=== PATIENT | female | born 1960 | race Caucasian/White ===

== ENCOUNTER 2018-06-18 06:52 | Inpatient (IN) | payer MEDICARE ==
[~2018-06-18] VITALS: Ht 152.4 cm; Wt 84.8 kg
[2018-06-18] MEDS ORDERED: ALBUTEROL (0.083%) 2.5MG/3ML NEB HHN STA (07:40)
[2018-06-18 08:05] LABS: BG BASE EXCESS -2.6 mmol/L (-2.0-2.0); BG CARBOXYHEMOGLOBIN 0.9 % (0.5-1.5); BG DEOXYHEMOGLOBIN 3.7 % (0.0-5.0); BG FRACTION INSPIRED OXYGEN 21; BG HCO3 ACT 22.1 mmol/L (22.0-26.0); BG METHEMOGLOBIN 0.1 % (0.0-1.5); BG OXYGEN SATURATION 96.3 % (92.0-98.5); BG OXYHEMOGLOBIN 95.3 % (94.0-97.0); BG PCO2 37.7 mmHg (35.0-45.0); BG PH 7.386 (7.350-7.450); BG PO2 87.7 mmHg (75.0-100.0); BG SAMPLE SITE RIGHT BRACHIAL; BG TOTAL HEMOGLOBIN 10.2 g/dL (12.0-18.0); BG VENT MODE ROOM AIR
[2018-06-18 08:12] LABS: BASOPHILS % 0.3 % (0.0-2.0); EOSINOPHILS % 0.9 % (0.0-5.0); HEMATOCRIT. 30.6 % (36.0-48.0); HEMOGLOBIN. 9.8 g/dL (12.0-16.0); LYMPHOCYTES % 9.6 % (20.0-50.0); MEAN CORPUSCULAR VOLUME 94.1 fL (81.0-99.0); MEAN PLATELET VOLUME 9.4 fl (7.4-10.4); MONOCYTES % 7.8 % (2.0-8.0); NEUTROPHILS % 81.4 % (40.0-76.0); PLATELET 124 x1000/uL (130-400); RED BLOOD CELL COUNT 3.25 mill/uL (4.2-5.4); RED CELL DISTRIBUTION WIDTH 17.5 % (11.6-14.6)
[2018-06-18 08:18] LABS: CHLORIDE 89 mEq/L (98-107)
[2018-06-18 08:22] LABS: INR 1.1; PARTIAL THROMBOPLASTIN TIME 26.3 sec (23.4-31.0); PROTHROMBIN TIME 11.4 sec (9.1-11.1)
[2018-06-18] MEDS ORDERED: INSULIN REGULAR (HUMULIN R) 300UNITS/3ML IV ONE (08:45)
[2018-06-18] MEDS ORDERED: FUROSEMIDE 40MG/4ML VIAL IVP NR (10:22)
[2018-06-18 10:28] LABS: CLARITY URINE CLOUDY (CLEAR); COLOR URINE YELLOW (YELLOW); KETONES URINE NEGATIVE (NEGATIVE); LEUKOCYTE ESTERASE URINE NEGATIVE (NEGATIVE); NITRITE URINE NEGATIVE (NEGATIVE); OCCULT BLOOD URINE TRACE (NEGATIVE); PROTEIN URINE 4+ (NEGATIVE); SPECIFIC GRAVITY URINE 1.019 (1.005-1.030); UROBILINOGEN URINE 0.2 E.U./dL (0.2-1.0)
[2018-06-18] MEDS ORDERED: SODIUM POLYSTYRENE SULFONATE 15 G/60 ML BOT PO NR (10:45)
[2018-06-18 11:43] VITALS: BP 201/80
[2018-06-18 12:00] VITALS: BP 201/80
[2018-06-18] MEDS ORDERED: HYDR50SY PO (12:22)
[2018-06-18] MEDS ORDERED: CARV25TA47 PO (12:22)
[2018-06-18] MEDS ORDERED: DEXTROSE 50% WATER 50ML SYRINGE IV PRN (12:30)
[2018-06-18] MEDS ORDERED: CLONIDINE 0.2MG TABLET PO PRN (13:00)
[2018-06-18] MEDS ORDERED: LORAZEPAM 0.5MG TABLET PO PRN (13:00)
[2018-06-18] MEDS ORDERED: GUAIFENESIN 200MG/10ML SUGAR FREE UDC PO PRN (13:00)
[2018-06-18] MEDS ORDERED: IPRATROPIUM/ALBUTEROL 0.5-3(2.5)MG/3ML NEB INH PRN (13:00)
[2018-06-18] MEDS ORDERED: NITROGLYCERIN 0.4MG TABLET SL SL PRN (13:00)
[2018-06-18] MEDS ORDERED: ONDANSETRON HCL 4MG/2ML INJ IV PRN (13:00)
[2018-06-18] MEDS: AMLODIPINE 10MG TABLET PO SCH (13:00)
[2018-06-18] MEDS ORDERED: MAGNESIUM/ALUMINUM HYDROXIDE/SIMETHICONE 30ML UDC PO PRN (13:00)
[2018-06-18] MEDS ORDERED: DOCUSATE SODIUM 100MG CAPSULE PO PRN (13:00)
[2018-06-18] MEDS: INSULIN LISPRO 100 UNITS/ML SUBCUT SCH ×4 (13:10→21:54)
[2018-06-18] MEDS: BLOOD SUGAR DIAGNOSTIC STRIP TEST SCH ×3 (13:32→21:01)
[2018-06-18 16:00] VITALS: BP 172/63
[2018-06-18] MEDS: DIPHENHYDRAMINE 50MG/ML VIAL IV PRN (16:00)
[2018-06-18] MEDS: GABAPENTIN 100MG CAPSULE PO SCH ×2 (16:03→21:52)
[2018-06-18] MEDS: HYDRALAZINE HCL 50MG TABLET PO SCH ×2 (16:04→21:51)
[2018-06-18] MEDS: ENOXAPARIN 30MG/0.3ML SYR SUBCUT SCH (16:05)
[2018-06-18] MEDS: ACETAMINOPHEN 325MG TABLET PO PRN ×2 (16:07→23:10)
[2018-06-18 20:00] VITALS: BP 153/75
[2018-06-18] MEDS: LISINOPRIL 20MG TABLET PO SCH (20:59)
[2018-06-18] MEDS ORDERED: ZOLPIDEM TARTRATE 5MG TABLET PO PRN (21:00)
[2018-06-18] MEDS: FAMOTIDINE 20MG TABLET PO SCH (21:00)
[2018-06-18] MEDS: METOPROLOL TARTRATE 25MG TABLET PO SCH (21:00)
[2018-06-18] MEDS: EPOETIN ALFA 4000UNITS/ML VIAL SUBCUT SCH (21:01)
[2018-06-18] MEDS: INSULIN GLARGINE UD 100 UNITS/ML SYR SUBCUT SCH (21:55)
[2018-06-18] MEDS ORDERED: INSULIN GLARGINE UD 100 UNITS/ML SYR SUBCUT SCH (22:00)
[2018-06-19] VITALS: BP 128/53
[2018-06-19 04:00] VITALS: BP 132/85
[2018-06-19] MEDS: BLOOD SUGAR DIAGNOSTIC STRIP TEST SCH ×4 (05:55→21:15)
[2018-06-19] MEDS: GABAPENTIN 100MG CAPSULE PO SCH ×3 (05:55→21:06)
[2018-06-19] MEDS: HYDRALAZINE HCL 50MG TABLET PO SCH ×3 (05:56→21:06)
[2018-06-19 07:21] LABS: BASOPHILS % 0.4 % (0.0-2.0); EOSINOPHILS % 2.1 % (0.0-5.0); HEMATOCRIT. 29.6 % (36.0-48.0); HEMOGLOBIN. 9.6 g/dL (12.0-16.0); LYMPHOCYTES % 13.8 % (20.0-50.0); MEAN CORPUSCULAR HEMOGLOBIN 29.8 pg (28.0-32.0); MEAN CORPUSCULAR VOLUME 91.2 fL (81.0-99.0); MEAN PLATELET VOLUME 8.9 fl (7.4-10.4); MONOCYTES % 8.6 % (2.0-8.0); NEUTROPHILS % 75.1 % (40.0-76.0); PLATELET 135 x1000/uL (130-400); RED BLOOD CELL COUNT 3.24 mill/uL (4.2-5.4); RED CELL DISTRIBUTION WIDTH 16.8 % (11.6-14.6)
[2018-06-19] MEDS: INSULIN LISPRO 100 UNITS/ML SUBCUT SCH ×7 (07:27→21:07)
[2018-06-19 08:00] VITALS: BP 124/63
[2018-06-19 08:59] LABS: PHOSPHORUS 6.2 mg/dL (2.5-4.9)
[2018-06-19] MEDS: AMLODIPINE 10MG TABLET PO SCH (09:00)
[2018-06-19] MEDS: LISINOPRIL 20MG TABLET PO SCH ×2 (09:59→20:37)
[2018-06-19] MEDS: METOPROLOL TARTRATE 25MG TABLET PO SCH ×2 (09:59→20:37)
[2018-06-19] MEDS: FAMOTIDINE 20MG TABLET PO SCH (09:59)
[2018-06-19] MEDS: FOLIC ACID/VITAMIN B COMP W-C TABLET PO SCH (10:00)
[2018-06-19] MEDS: ENOXAPARIN 30MG/0.3ML SYR SUBCUT SCH (10:04)
[2018-06-19 12:00] VITALS: BP 146/73
[2018-06-19 16:00] VITALS: BP 114/50
[2018-06-19] MEDS: ACETAMINOPHEN 325MG TABLET PO PRN (18:57)
[2018-06-19 20:00] VITALS: BP 126/58
[2018-06-19] MEDS: INSULIN GLARGINE UD 100 UNITS/ML SYR SUBCUT SCH (21:07)
[2018-06-20] VITALS: BP 130/62
[2018-06-20] MEDS: GABAPENTIN 100MG CAPSULE PO SCH ×3 (05:31→21:36)
[2018-06-20] MEDS: HYDRALAZINE HCL 50MG TABLET PO SCH ×3 (05:31→21:39)
[2018-06-20] MEDS: DIPHENHYDRAMINE 50MG/ML VIAL IV PRN ×2 (05:38→18:12)
[2018-06-20] MEDS: BLOOD SUGAR DIAGNOSTIC STRIP TEST SCH ×4 (07:40→21:40)
[2018-06-20 08:00] VITALS: BP 126/65
[2018-06-20] MEDS: FOLIC ACID/VITAMIN B COMP W-C TABLET PO SCH (09:14)
[2018-06-20] MEDS: FAMOTIDINE 20MG TABLET PO SCH (09:14)
[2018-06-20] MEDS: INSULIN LISPRO 100 UNITS/ML SUBCUT SCH ×8 (09:15→21:00)
[2018-06-20] MEDS: AMLODIPINE 10MG TABLET PO SCH (09:18)
[2018-06-20] MEDS: METOPROLOL TARTRATE 25MG TABLET PO SCH ×2 (09:18→21:37)
[2018-06-20] MEDS: LISINOPRIL 20MG TABLET PO SCH ×2 (09:18→21:35)
[2018-06-20] MEDS: ENOXAPARIN 30MG/0.3ML SYR SUBCUT SCH (09:19)
[2018-06-20] MEDS: ACETAMINOPHEN 325MG TABLET PO PRN ×2 (11:42→21:38)
[2018-06-20 12:00] VITALS: BP 127/63
[2018-06-20 16:00] VITALS: BP 128/67
[2018-06-20] MEDS: CALCIUM ACETATE 667MG CAPSULE PO SCH (18:20)
[2018-06-20 18:36] VITALS: BP 128/67
[2018-06-20 20:00] VITALS: BP 120/53
[2018-06-20] MEDS: EPOETIN ALFA 4000UNITS/ML VIAL SUBCUT SCH (21:39)
[2018-06-20] MEDS: INSULIN GLARGINE UD 100 UNITS/ML SYR SUBCUT SCH (21:42)
[2018-06-21] VITALS: BP 127/58
[2018-06-21] MEDS: ACETAMINOPHEN 325MG TABLET PO PRN (02:37)
[2018-06-21 04:00] VITALS: BP 154/73
[2018-06-21] MEDS: GABAPENTIN 100MG CAPSULE PO SCH (06:17)
[2018-06-21] MEDS: HYDRALAZINE HCL 50MG TABLET PO SCH (06:17)
[2018-06-21 07:13] LABS: BASOPHILS % 0.3 % (0.0-2.0); EOSINOPHILS % 0.9 % (0.0-5.0); HEMATOCRIT. 32.1 % (36.0-48.0); MEAN CORPUSCULAR VOLUME 93.1 fL (81.0-99.0); MEAN PLATELET VOLUME 8.7 fl (7.4-10.4); MONOCYTES % 8.9 % (2.0-8.0); NEUTROPHILS % 81.9 % (40.0-76.0); PLATELET 152 x1000/uL (130-400); RED BLOOD CELL COUNT 3.45 mill/uL (4.2-5.4); RED CELL DISTRIBUTION WIDTH 17.5 % (11.6-14.6)
[2018-06-21] MEDS: BLOOD SUGAR DIAGNOSTIC STRIP TEST SCH (07:36)
[2018-06-21 08:00] VITALS: BP 143/61
[2018-06-21] MEDS: ENOXAPARIN 30MG/0.3ML SYR SUBCUT SCH (08:47)
[2018-06-21] MEDS: LISINOPRIL 20MG TABLET PO SCH (08:47)
[2018-06-21] MEDS: CALCIUM ACETATE 667MG CAPSULE PO SCH (08:47)
[2018-06-21] MEDS: FOLIC ACID/VITAMIN B COMP W-C TABLET PO SCH (08:48)
[2018-06-21] MEDS: FAMOTIDINE 20MG TABLET PO SCH (08:48)
[2018-06-21] MEDS: METOPROLOL TARTRATE 25MG TABLET PO SCH (08:48)
[2018-06-21] MEDS: INSULIN LISPRO 100 UNITS/ML SUBCUT SCH ×2 (08:49→08:50)
[2018-06-21] MEDS: AMLODIPINE 10MG TABLET PO SCH (08:56)
[2018-06-21 10:14] VITALS: BP 143/61
== END 2018-06-21 11:20 | disposition home or self-care (01) | DRG 291 ==
LOC: ER 06:52 → 7WST 08:02 → EDBEDREQ 08:08 → ENRESERV 08:12
PROVIDERS: ADMIT Internal Medicine; ATTEND Internal Medicine
PROC: 5A1D70Z Performance of Urinary Filtration, Intermittent, Less than 6 Hours Per Day (ICD-10-PCS; principal; 2018-06-18)
PROC: 5A1D70Z Performance of Urinary Filtration, Intermittent, Less than 6 Hours Per Day (ICD-10-PCS; 2018-06-20)
DX: I13.2 Hypertensive heart and chronic kidney disease with heart failure and with stage 5 chronic kidney disease, or end stage renal disease (principal); J96.01 Acute respiratory failure with hypoxia; I50.33 Acute on chronic diastolic (congestive) heart failure; N18.6 End stage renal disease; N25.81 Secondary hyperparathyroidism of renal origin; E87.1 Hypo-osmolality and hyponatremia; E44.0 Moderate protein-calorie malnutrition; D63.8 Anemia in other chronic diseases classified elsewhere; E83.51 Hypocalcemia; E87.5 Hyperkalemia; D69.6 Thrombocytopenia, unspecified; E11.65 Type 2 diabetes mellitus with hyperglycemia; E11.22 Type 2 diabetes mellitus with diabetic chronic kidney disease; E83.39 Other disorders of phosphorus metabolism; Z82.49 Family history of ischemic heart disease and other diseases of the circulatory system; Z83.3 Family history of diabetes mellitus; Z90.49 Acquired absence of other specified parts of digestive tract; Z91.14 Patient's other noncompliance with medication regimen; Z99.2 Dependence on renal dialysis; Z91.11 Patient's noncompliance with dietary regimen; Z88.5 Allergy status to narcotic agent; Z88.0 Allergy status to penicillin; Z88.6 Allergy status to analgesic agent; Z91.048 Other nonmedicinal substance allergy status
CPT/HCPCS: 36415; 36600; 71045; 80048; 80061; 82375; 82805; 82962; 83036; 83735; 84100; 84484; 93005; 93970; 94640; 96374; 96375; 97162; 97166; 99291; J0885; J1200; J1650; J1815; J1940; J2405; J7611